=== PATIENT | female | born 1955 | race Caucasian/White ===

== ENCOUNTER → 2018-03-09 | Outpatient (CLI) | payer BC ==
[~2018-03-09] VITALS: Ht 157.5 cm; Wt 67.6 kg
[2018-03-09] VITALS (7 sets, daily range): BP systolic 123–144; BP diastolic 63–89
== END ==
LOC: CAT 08:52
DX: M71.30 Other bursal cyst, unspecified site (principal); K21.9 Gastro-esophageal reflux disease without esophagitis; I10 Essential (primary) hypertension; E78.5 Hyperlipidemia, unspecified; Z85.038 Personal history of other malignant neoplasm of large intestine